=== PATIENT | female | born 1970 | race Caucasian/White ===

== ENCOUNTER 2021-03-11 10:05 | Outpatient (AMBR) | payer MEDICARE, MEDICAID, SELFPAY ==
--- NOTE | 2021-03-11 10:33 | PTNOTE_ITS ---
PT OP Initial Eval Patient Information Visit Reasons: left knee pain & weakness Medical Diagnosis: M25.569; R53.9 Treatment Dx #1: Left Knee Pain Treatment Dx #2: Gait Difficulty Start of Care: 03/11/21 Date of Onset: 1 month ago Initial Assessment Subjective Pt is a 50 y/o female who reports of left knee pain (10/05) ~ 1 month ago where she was unable to move for 10 days. Since the pain she has improved and been able to walk again. Pt is pending a knee xray and feels that currently she is back at baseline. Pt feels that she does not need any physical therapy at the moment. Pt will like to be d/c from care after PT evaluation. Objective Left Knee AROM: 0 deg to 100 deg Left Knee MMTs Quads: 3+/5 Hs: 3+/5 Left Hip MMTs Glute Med: 3/5 Glute Max: 3/5 Ambulation: step thru pattern with 4WW with slow [place]in[place] Assessment Pt demonstrate functional left knee mobility and strength leading to minimal difficulty with ADLs. At this time Pt will not benefit from physical therapy due to being back to baseline physically. Pt was evaluated and d/c from care, thank you for your referrals Short Term and Paper Twister Tender Goals 1) Eval and D/C 2) Follow up with MD PETER Treatment Plan Frequency and Duration 1x Certification Dates: 03/11/21 to 06/09/21 Office Procedures PT Treatments PT Date of Service: 03/11/21 OP PT Eval Mod Complex 30 minutes: Yes
== END 2021-03-28 23:59 | disposition home or self-care (01) ==
PROVIDERS: PCP Physician Assistant; Referring Provider Physician Assistant; Visit Provider Physician Assistant
DX: M25.562 Pain in left knee (principal); R26.89 Other abnormalities of gait and mobility; R53.1 Weakness
CPT/HCPCS: 97162

== ENCOUNTER 2024-06-25 10:22 | Emergency (ER) | payer MEDICARE, MEDICAID, SELFPAY ==
[2024-06-25 10:23] VITALS: BP 184/110; PULSE 98; RESP 19; TEMP 36.4; O2SAT 94; BMI 44.4
--- NOTE | 2024-06-25 10:38 | EKG_ITS ---
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
[2024-06-25 10:41] VITALS: BP 183/92; PULSE 91; PULSE 92; RESP 18; O2SAT 98
--- NOTE | 2024-06-25 10:46 | XR_ITS ---
Examination: AP chest single view TECHNIQUE: Sitting AP chest single view Examination time: June 25, 2024 1134 hours Comparison February 27, 2014 INDICATION: Cardiac palpitations several weeks FINDINGS: Normal heart size The lungs are clear. The osseous structures are intact IMPRESSION: No active disease
--- NOTE | 2024-06-25 10:50 | EDNOTE_ITS ---
<Statement entered by Bell Morrissey MD - 06/26/24 17:53> As co-signing physician, I was present and available for consult prn. I concur with the plan and care as documented by the midlevel provider. ED General RME/HPI General Chief complaint: Arrhythmia/Palpitations Stated complaint: CHEST PAIN Time Seen by Provider: 06/25/24 10:46 Arrival date/time: 06/25/24 10:22 CC: Chest pressure and palpitations HPI intermittent ongoing for the past 2 weeks with progressive increase in severity called 911 today because of the chest pressure and palpitations. Patient denies outright chest pain. EMS report patient took a nitroglycerin at home Nitropaste was applied with some relief of the symptoms described above. Patient denies any nausea vomiting headache shortness of breath or difficulty breathing at this time. Patient states seen by Dr. French for cardiology currently awake alert oriented stating she has no headache dizziness at this time. Continues to complain of mild chest pressure. Related Data Home Medications ?Medication ?Instructions ?Recorded ?Confirmed carvedilol 25 mg tablet (Coreg) 12.5 mg PO BID 3 06/24/23 clopidogrel 75 mg tablet (Plavix) 75 mg PO QDAY 06/24/23 gabapentin 600 mg tablet 800 mg PO TID 04/13/2206/23 insulin glargine 100 unit/mL (3 8 unit subcut QDAY 06/24/23 mL) subcutaneous pen (Lantus Solostar U-100 Insulin) levothyroxine 50 mcg tablet 25 mcg PO QDAY 04/13/22 metformin 1,000 mg tablet 1,000 mg PO BID 04/13/22 rosuvastatin 5 mg tablet 5 mg PO QDAY 04/13/22 semaglutide 1 mg/dose (2 mg/1.5 1 mg subcut QWEEK 03/2906/24/23 mL) subcutaneous pen injector (Ozempic) tramadol 100 mg tablet,extended 100 mg PO QDAY 4 06/24/23 release 24 hr tramadol 50 mg tablet 50 mg PO QDAY 06/24/2306/23 Allergies Allergy/AdvReac Type Severity Reaction Status Date / Time heparin Allergy Severe HIT Verified 06/25/24 10:49 hydromorphone Allergy Severe Vomiting Verified 06/25/24 10:49 Iodinated Contrast Media Allergy Intermediate Unknown Verified 06/25/24 10:49 Penicillins Allergy Mild Rash Verified 06/25/24 10:49 Review of Systems Review of Systems Narrative Review of Systems: GEN: No fever, no chills, no weight loss EYES: No discharge, no visual changes, no pain HEENT: No ear pain, no congestion, no sore throat PULM: No shortness of breath, no cough, no congestion CV: + chest pressure, no dyspnea on exertion, no palpitations GI: No nausea, no vomiting, no diarrhea, no pain, no constipation : No frequency, no urgency, no dysuria MUSC/SKEL: No joint pain, no back pain SKIN: No rash PSYCH: No hallucinations, no depression HEME/LYMPH: No easy bleeding or bruising tendencies NEURO: No weakness, no headache Past Medical History Past Medical History NEUROLOGIC: Positive Neurological Disorders and Peripheral Neuropathy; Negative Cerebrovascular Accident, Transient Ischemic Attacks (TIA), Dementia, Alzheimer's Disease, Parkinson's Disease, Brain Tumor, Meningitis, Seizures, Epilepsy, Multiple Sclerosis, Cerebral Palsy, Amyotrophic Lateral Sclerosis (ALS/Chana Gehrig's), Guillain-Tornado Syndrome, Spina Bifida, Paralysis, French's Palsy, Subdural Hematoma, Migraine, Head Trauma, Spinal Cord Injury or Traumatic Brain Injury CARDIAC: Positive Cardiac Disorders, Peripheral Vascular Disease, Hypercholesterolemia, Congestive Heart Failure, Edema (at times), Cellulitis and Hypertension; Negative Cardiac Arrhythmia, Atrial Fibrillation, Angina, Heart Murmur, Coronary Artery Disease, Atherosclerotic Heart Disease, Aneurysm, Congenital Heart Disease, Valvular Heart Disease, Rheumatic Fever, Cardiomyopathy, Pericarditis, Deep Vein Thrombosis, Hypotension or Varicose Veins RESPIRATORY: Positive Asthma (IN THE PAST), Bronchitis (IN THE PAST), Pneumonia (IN THE PAST) and Sleep Apnea (POSSIBLE - NO SLEEP STUDY DONE); Negative Chronic Obstructive Pulmonary Disease (COPD), Emphysema, Pulmonary Fibrosis, Cystic Fibrosis, Tuberculosis, Pulmonary Embolism or Pulmonary Edema GASTROINTESTINAL: Positive Gastrointestinal Disorders, Gall Bladder Disease (HAD SURGERY), Hemorrhoids and Obesity; Negative Hepatitis, Cirrhosis, Pancreatitis, Celiac Disease, Gastrointestinal Bleed, Esophageal Varices, Tidwell's Esophagus, Colitis, Ulcerative Colitis, Diverticulitis, Diverticulosis, Ulcer, Colorectal Cancer, Irritable Bowel, Crohn's Disease, Obstructive Bowel, Hiatal Hernia or Gastroesophageal Reflux Disease GENITOURINARY: Negative Genitourinary Disorders, Renal Disease, Kidney Stones, Polycystic Kidney Disease, Neurogenic Bladder, Inguinal Hernia, Dialysis, Prostate Cancer or Benign Prostatic Hyperplasia REPRODUCTIVE: Positive Previous Pregnancies; Negative Breast Cancer, Endometriosis, Genital Herpes, Gonorrhea, Pelvic Inflammatory Disease, Syphilis, Testicular Cancer or Uterine Prolapse MUSCULOSKELETAL: Positive Musculoskeletal Disorders (LEFT ABOVE THE KNEE AMPUTATION), Arthritis and Osteomyelitis; Negative Muscular Dystrophy, Myasthenia Gravis, Marfan's Syndrome, Bone Cancer, Rheumatoid Arthritis, Osteoporosis, Degenerative Disk Disease, Gout, Scoliosis, Carpal Tunnel Syndrome, Fibromyalgia, Fractures, Degenerative Joint Disease or Poliovirus ENT: Negative Cataracts, Glaucoma, Blind, Retinal Detachment, Macular Degeneration, Ear Infection, Deafness, Head Trauma or Eye Prosthesis ENDOCRINE: Positive Endocrine Disorders, Diabetes Mellitus Type 2 and Hypothyroidism; Negative Diabetes Mellitus Type 1, Hypoglycemia, [place]'s Syndrome, [place]'s Disease, Hyperthyroidism, Parathyroid Disease, Pituitary Disease, Systemic Lupus Erythematosus, Syndrome of Inappropriate Antidiuretic Hormone (SIADH), Adrenal Disease or Graves' Disease HEMATOLOGIC: Positive Clotting Problems (LEFT DVT 6 YEARS AGO); Negative Blood Disorders, Anemia, Leukemia, Hemophilia, Thalassemia or Sickle Cell Disease PSYCHO/SOCIAL: Positive Depression (AT TIMES) and Anxiety (AT TIMES); Negative Psychiatric Problems, Schizophrenia, Recreational Drug Use, Bipolar Disorder, Behavior Problems, Self-Mutilation, Attention Deficit Disorder, Attention Deficit Hyperactivity Disorder, Depression, Post Traumatic Stress Disorder or Eating Disorder OTHER HISTORY: Positive Shingles, Blood Transfusions and Chicken Pox; Negative Hospitalization, Autoimmune Disease, Down Syndrome, Autism, Developmental Delay, Falls, Blood Transfusion Reaction, Anesthesia Reactions, Organ Transplant, Chemotherapy, Radiation Therapy, Hyperbaric Therapy, MRSA, VRSA, Vancomycin-Resistant Enterococci, Human Immunodeficiency Virus (HIV), Measles, Mumps, Rubella (Kinyarwanda Measles), Pertussis, Clostridium Difficile, Cancer, Breast Cancer, Cervical Cancer, Colorectal Cancer, Lung Cancer, Ovarian Cancer, Prostate Cancer or Testicular Cancer Family History FAMILY HISTORY: Positive Family Psychiatric Problems, Family Respiratory Disorders and Family Cardiac Disorders; Negative Family Gastrointestinal Problems, Family Cancer, Family Surgery or Family Anesthesia Reaction Surgical History SURGICAL: Positive Vascular Surgery, Coronary Stent, Cardiac Catheterization, Angiogram, Tympanostomy Tube, Tonsillectomy, Abdominal Surgery, Gastric Bypass Surgery and Amputation (LEFT ABOVE THE KNEE AMPUTATION); Negative Cardiac Surgery, Open Heart Surgery, Coronary Artery Bypass Graft, Valve Replacement, Pacemaker, Auto Implanted Cardiovert Defib, Carotid Endarterectomy, Endocrine Surgery, Thyroidectomy, Ear Surgery, Eye Surgery, Nose Surgery, Oral Surgery, Adenoidectomy, Cochlear Implant, Corneal Transplant, Throat Surgery, Tracheostomy, Gastrostomy, Bowel Surgery, Nephrectomy, Transurethral Resection, Joint Replacement, Open Reduction Internal Fixation, Arthroscopy, Neurologic Surgery, Brain Shunt, Mastectomy, Lumpectomy, Hysterectomy, Tubal Ligation, Section or Organ Transplant Social History SMOKING STATUS: Former smoker ED Exam Narrative Physical exam: [General: Obese not in any acute distress Head normocephalic HEENT: Pupils are PERRLA EOMs are intact mouth pink dry membranes uvula is midline swallow symmetrical. Nose: No rhinorrhea all other subsystems of HEENT are within acceptable limits Neck is supple nontender no JVD no edema Chest equal chest rise nontender to palpation Respiratory: Clear to auscultation no wheezes crackles or rubs CV: Rate rhythm is regular no murmurs rubs or clicks Abdomen is grossly distended secondary to body habitus, with large pannus, soft nontender no masses positive bowel sounds all 4 quadrants Back: No CVA tenderness no spinous process tenderness from cervical spine thoracic and lumbar spine Skin: Intact no petechiae rash induration ulceration or crepitus, left lower extremity BKA stump clean dry and intact well-healed surgical scar. Extremities: Moving all extremities against resistance cap refill less than 2 seconds neurosensory intact., Left lower extremity BKA Neuro: Awake alert oriented x3 Glascow coma 15 no focal deficits] Course Quality Measures none Orders Category Date Time Status EKG (ED ONLY) *Do not use* NOW Care 06/25/24 10:39 Completed EKG (ED Only) Stat Exams 06/25/24 10:38 Draft XR chest 1V Stat Exams 06/25/24 10:46 Completed B-Type Natriuretic Peptide Stat Lab 06/25/24 10:55 Completed CBC Stat Lab 06/25/24 10:55 Completed Comprehensive Metabolic Panel Stat Lab 06/25/24 10:55 Completed LDH (Lactate Dehydrogenase) Stat Lab 06/25/24 10:55 Completed Magnesium Stat Lab 06/25/24 10:55 Completed Partial Thromboplastin Time Stat Lab 06/25/24 10:55 Completed Prothrombin Time with INR Stat Lab 06/25/24 10:55 Completed Troponin I Stat Lab 06/25/24 10:55 Completed Troponin I Stat Lab 06/25/24 13:23 Completed hydrALAZINE HCL [Apresoline] Med 06/25/24 15:34 Discontinued 25 mg PO X1 ONE Vital Signs Vital signs: Vital Signs Temperature 97.6 F 06/25/24 10:23 Pulse Rate 98 06/25/24 10:23 Respiratory Rate 19 06/25/24 10:23 Blood Pressure 184/110 H 06/25/24 10:23 Pulse Oximetry (%) 94 L 06/25/24 10:23 [facility] Patient data External records reviewed:: [facility] previous records and EMS form Clinical information provided by:: patient and EMS Social determinants that could affect healthcare access:: none Patient has the following chronic illnesses:: Diabetes hypertension hyperlipidemia hypothyroidism How is presenting disease/condition affected by chronic disease/condition?: u neffected by Evaluation data The following diagnostics were reviewed and interpreted by me:: lab results, radiology exam(s) and EKG tracing(s) Lab and/or radiology exams considered but not ordered:: EKG performed at 1044 shows a ventricular rate of 93 CO interval 137 QRS of 22 5 QTc of 392 this is sinus rhythm left axis deviation with occasional PVC. When compared to old EKG of May 2017 there are no significant changes. CBC shows no significant leukocytosis anemia thrombocytopenia Coags within acceptable limits CMP shows no acute electrolyte imbalances renal impairment transaminitis or T. bili elevation initial and delta troponin are both negative BNP at 55 Chest x-ray is unremarkable for any acute finding requires emergent or immediate intervention Interpretation Summary: With a heart score of 3, patient's repeat troponins are negative patient be discharged home to follow-up with her PCP and circular sawyer helper. Medications Medications considered but not ordered:: None Medication administrations:: Medication Administration History Discontinued Medications Hydralazine HCl (Hydralazine Hcl 25 Mg Tablet) 25 mg PO X1 ONE Stop: 06/25/24 15:35 Last Admin: 06/25/24 15:38 Dose: 25 mg Documented By: JENNIFER None Consultations Consultation(s) initiated? (list below): No Diagnosis Differential Diagnosis ED Complaint MDM: ACS VT pneumonia Most likely diagnosis given after review of the tests above:: Chest pressure palpitation Admission Indicated Admission indicated?: not indicated Explain why admission is indicated or not indicated:: Stable for outpatient follow-up Admission Request Was there a request for admission?: No Disposition Plan Disposition Plan: Discharge Discharge Attestation Discharge Attestation: The patient and all family members were given an opportunity to ask questions and understood the discharge instructions. Discharge instructions specifically effects, indications for sooner follow up or return to the emergency department, and the expected course of current diagnosis. Patient condition: Stable Medical Decision Making Differential Diagnosis Differential Diagnosis: ACS VT pneumonia Lab Data 06/25/24 10:55 06/25/24 10:55 Labs: Lab Results 06/25/24 06/25/24 Range/Units 10:55 13:23 WBC 6.7 (3.6-11.0) Thou/mm3 RBC 5.33 H (4.00-5.20) Miln/mm3 Hgb 13.4 (12.0-16.0) g/dL Hct 40.3 (36.0-46.0) % MCV 76 L (80-100) fL MCH 25.1 (25.0-35.0) pg MCHC 33.3 (31.0-37.0) g/dl RDW Std Deviation 38.5 (36.4-46.3) fL Plt Count 224 (140-440) Thou/mm3 Neut % (Auto) 62 (37-80) % Lymph % (Auto) 31 (10-50) % [place] % (Auto) 6 (0-12) % Eos % (Auto) 1 (0-10) % Baso % (Auto) 1 (0-2.5) % Neut # (Auto) 4.2 (1.8-7.7) Thou/mm3 Lymph # (Auto) 2.1 (1.0-4.8) Thou/mm3 [place] # (Auto) 0.4 (0.0-0.8) Thou/mm3 Eos # (Auto) 0.1 (0.0-0.5) Thou/mm3 Baso # (Auto) 0.0 (0.0-0.2) Thou/mm3 Immature Gran # (Auto) 0.02 H (0.00-0.00) Thou/mm3 Absolute Nucleated RBC 0.00 (0.00-0.00) Thou/mm3 Immature Gran % 0 (0-0) % Nucleated RBC % 0 (0) /100 WBC PT 11.6 (9.0-12.2) Seconds INR 1.1 (0.9-1.3) APTT 21.3 L (22.0-36.0) Seconds Sodium 139 (136-145) mMol/L Potassium 4.9 (3.4-5.1) mMol/L Chloride 108 H (98-107) mMol/L Carbon Dioxide 22.9 (20.0-31.0) mMol/L Anion Gap 8 (7-16) BUN 9 (9-23) mg/dL Creatinine 0.6 (0.6-1.3) mg/dL Estim Creat Clear Calc 149.7 (>60) mL/min eGFR > 60 (60 - ) See Note BUN/Creatinine Ratio 15 (12-20) Ratio Glucose 181 H (74-106) mg/dL Calculated Osmolality 281 (275-295) Calcium 9.1 (8.3-10.6) mg/dL Corrected Calcium 9.1 (8.5-10.1) mg/dL Magnesium 1.6 (1.6-2.6) mg/dL Total Bilirubin 0.4 (0.3-1.2) mg/dL AST 29 (0-34) U/L ALT 11 (10-49) U/L Alkaline Phosphatase 59 (46-116) U/L Lactate Dehydrogenase 397 H (120-246) U/L Troponin I < 0.002 < 0.002 (0.0-0.045) ng/mL B-Natriuretic Peptide 55 (0-100) pg/mL Total Protein 7.1 (5.7-8.2) gm/dL Albumin 4.2 (3.5-5.0) gm/dL Globulin 2.9 (2.3-3.5) gm/dL Albumin/Globulin Ratio 1.4 (1.2-2.2) Discharge Plan Plan Patient Disposition: HOME (Self Care) Patient condition on transfer: Stable Prescriptions/Referrals Prescriptions/Med Rec: No Action carvedilol [Coreg] 25 mg Tablet 12.5 mg PO BID Rx Instructions: must administer with a meal/food gabapentin 600 mg Tablet 800 mg PO TID clopidogrel [Plavix] 75 mg Tablet 75 mg PO QDAY metformin 1,000 mg Tablet 1,000 mg PO BID Ozempic 1 mg/dose (2 mg/1.5 mL) Pen Injector 1 mg SUBCUT QWEEK Rx Instructions: . levothyroxine 50 mcg tablet 25 mcg PO QDAY Patient Comments: TAKE 1 TABLET BY MOUTH EVERY DAY rosuvastatin 5 mg tablet 5 mg PO QDAY Patient Comments: TAKE 1 TABLET BY MOUTH EVERY NIGHT FOR CHOLESTEROL insulin glargine [Lantus Solostar U-100 Insulin] 100 unit/mL (3 mL) insulin pen 8 unit SUBCUT QDAY Patient Comments: INJECT 20 UNITS SUBCUTANEOUSLY DAILY tramadol 50 mg tablet 50 mg PO QDAY tramadol 100 mg tablet extended release 24 hr 100 mg PO QDAY Referrals: Yamilet Olivo PA-C [Primary Care Provider] - In 1 week Problem List Clinical Impression: Chest pressure, Palpitations Patient/Caregiver Discharge Instructions Education Materials: ED Palpitations Additional Instructions: Follow-up your primary care doctor and your circular sawyer helper if there is a worsening of symptoms return the emergency immediately for further evaluation. Print Language: Occitan Stand Alone Forms: Romelia Award Info., Work/School Release, Patient Portal Info Letter SONIA/SYEDA Supervising Physician SONIA/SYEDA Supervising Physician: Davidson Hampton ENP
--- NOTE | 2024-06-25 11:00 | PC.NURSE ---
BIBA FROM HOME, PALPITATIONS X2 WEEKS, HAS GRADUALLY BECOME WORSE. FEELING A SMALL AMOUNT OF PRESSURE, TOOK SL NITRO AT HOME PRIOR TO EMS ARRIVAL. EMS GAVE ANOTHER NITRO SL WELL NITRO PASTE AND ASPIRIN. PT REPORTS THE MEDS DID HELP. PT ARRIVED W/IV: 20 TO LEFT HAND. FAMILY AT BEDSIDE.
[2024-06-25 11:12] LABS: Basophils % (Auto) 1 % (0-2.5); Eosinophils # (Auto) 0.1 Thou/mm3 (0.0-0.5); Eosinophils % (Auto) 1 % (0-10); Hematocrit 40.3 % (36.0-46.0); Hemoglobin 13.4 g/dL (12.0-16.0); Immature Granulocytes % (Auto) 0 % (0-0); Immature Granulocytes Auto 0.02 Thou/mm3 (0.00-0.00); Lymphocytes # (Auto) 2.1 Thou/mm3 (1.0-4.8); Lymphocytes % (Auto) 31 % (10-50); Mean Corpuscular HGB Conc 33.3 g/dl (31.0-37.0); Mean Corpuscular Hemoglobin 25.1 pg (25.0-35.0); Mean Corpuscular Volume 76 fL (80-100); Monocytes # (Auto) 0.4 Thou/mm3 (0.0-0.8); Monocytes % (Auto) 6 % (0-12); Neutrophils # (Auto) 4.2 Thou/mm3 (1.8-7.7); Neutrophils % (Auto) 62 % (37-80); Nucleated Red Blood Cell % 0 /100 WBC (0); Platelet Count 224 Thou/mm3 (140-440); RDW Standard Deviation 38.5 fL (36.4-46.3); Red Blood Count 5.33 Miln/mm3 (4.00-5.20); White Blood Count 6.7 Thou/mm3 (3.6-11.0)
[2024-06-25 11:19] LABS: INR 1.1 (0.9-1.3); Partial Thromboplastin Time 21.3 Seconds (22.0-36.0); Prothrombin Time 11.6 Seconds (9.0-12.2)
[2024-06-25 11:20] LABS: B-Type Natriuretic Peptide 55 pg/mL (0-100)
[2024-06-25 11:22] LABS: Alanine Aminotransferase 11 U/L (10-49); Albumin, Serum 4.2 gm/dL (3.5-5.0); Albumin/Globulin Ratio 1.4 (1.2-2.2); Alkaline Phosphatase 59 U/L (46-116); Anion Gap 8 (7-16); Aspartate Amino Transferase 29 U/L (0-34); BUN/Creatinine Ratio 15 Ratio (12-20); Bilirubin,Total 0.4 mg/dL (0.3-1.2); Blood Urea Nitrogen 9 mg/dL (9-23); Calcium 9.1 mg/dL (8.3-10.6); Calcium (Corrected) 9.1 mg/dL (8.5-10.1); Carbon Dioxide 22.9 mMol/L (20.0-31.0); Chloride 108 mMol/L (98-107); Creatinine (Component) 0.6 mg/dL (0.6-1.3); Estimated Creatinine Clearance 149.7 mL/min (>60); Globulin 2.9 gm/dL (2.3-3.5); Glucose 181 mg/dL (74-106); LDH (Lactate Dehydrogenase) 397 U/L (120-246); Magnesium 1.6 mg/dL (1.6-2.6); Osmolality,Calculated 281 (275-295); Potassium 4.9 mMol/L (3.4-5.1); Sodium 139 mMol/L (136-145); Total Protein 7.1 gm/dL (5.7-8.2); Troponin I < 0.002 ng/mL (0.0-0.045); eGFR > 60 See Note
[2024-06-25 12:39] VITALS: BP 164/90; PULSE 86; RESP 16; TEMP 36.9; O2SAT 98
[2024-06-25 13:44] LABS: Troponin I < 0.002 ng/mL (0.0-0.045)
[2024-06-25 14:20] VITALS: BP 150/76; PULSE 92; RESP 17; TEMP 36.6; O2SAT 97
[2024-06-25 15:38] VITALS: BP 163/109; PULSE 93
[2024-06-25] MEDS: hydrALAZINE HCL 25 MG TABLET PO (15:38)
--- NOTE | 2024-06-25 15:44 | PC.NURSE ---
Patient's blood pressure at 163/109, pt stated that her regular blood pressure is usually in the 150-160. Davidson Hampton PRODUCTION GRAPHIC DESIGNER made aware of elevated blood pressure. New order for medication for blood pressure given
[2024-06-25 15:51] VITALS: BP 163/109; PULSE 96; RESP 20; O2SAT 97
== END 2024-06-25 15:53 | disposition home or self-care (01) ==
PROVIDERS: Registered Nurse General Practice; Emergency Provider Emergency Medicine; PCP Physician Assistant
DX: R07.89 Other chest pain (principal); R00.2 Palpitations; I49.3 Ventricular premature depolarization; I11.0 Hypertensive heart disease with heart failure; I50.9 Heart failure, unspecified; E78.00 Pure hypercholesterolemia, unspecified; Z79.02 Long term (current) use of antithrombotics/antiplatelets; Z87.891 Personal history of nicotine dependence
CPT/HCPCS: 36415; 71045; 80053; 80307; 81001; 83615; 83735; 83880; 84484; 85025; 85610; 85730; 93005; 99283; A9270